=== PATIENT | female | born 1995 | race Caucasian/White ===

== ENCOUNTER 2017-03-29 21:49 | Observation (INO) | payer BC ==
[~2017-03-29] VITALS: Wt 57.2 kg
--- NOTE | 2017-03-29 22:00 | NUR ---
PATIENT DIRECT ADMIT TO ROOM 341 ACCOMPANIED BY SISTER. ORIENTED TO ROOM, CALL LIGHT AND PLAN OF CARE.
[2017-03-29 22:26] VITALS: BP 117/70; PULSE 64; TEMP 98.5
[2017-03-30] VITALS: BP 108/56; PULSE 60; TEMP 97.5
--- NOTE | 2017-03-30 | NUR ---
MULTIPLE ATTEMPTS MADE TO START IV BY SEVERAL RN'S AND SUPERVISOR BLOOMING MILL. RN FROM ER CAME UP AND STARTED IV WITH 20G TO RT AC SPACE AFTER SEVERAL ATTEMPTS. NS AT 125CC/HR STARTED PER PUMP. GAVE TORODOL AND ZOFRAN IV. SISTER VERY SUPPORTIVE AT BEDSIDE. PAIN IMPROVED AFTER A SHORT WHILE.
[2017-03-30] MEDS ORDERED: ZOFRAN 4MG T4 MG/TAB PO (00:14)
[2017-03-30] MEDS ORDERED: PERCOCET 325 MG1 TA2 PO (00:16)
[2017-03-30 04:00] VITALS: BP 104/51; PULSE 56; TEMP 97.4
--- NOTE | 2017-03-30 06:20 | NUR ---
PATIENT HAS BEEN RESTING WELL THROUGH THE NIGHT. DENIES NAUSEA. CONTROLLED RT FLANK PAIN WITH DE ICER KIT ASSEMBLER. MOTHER STAYED THROUGH THE NIGHT WITH PATIENT.
[2017-03-30 08:04] VITALS: BP 106/56; PULSE 58; TEMP 98.5
--- NOTE | 2017-03-30 10:29 | NUR ---
Pt resting in bed during morning rounds. 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 She states she still has mild pain, to right flank, but is manageable. Pt mother is at bedside. Awaiting surgery.
[2017-03-30 11:41] VITALS: BP 109/54; PULSE 70; TEMP 98.4
[2017-03-30 16:01] VITALS: BP 113/70; PULSE 89; TEMP 97.4
--- NOTE | 2017-03-30 16:23 | NUR ---
SW met with patient and family to review discharge plan. Patient lives with her sister in [place], patient is a current [employer] student. Patient plans to return home upon discharge. SW to notify the [employer] Office of Student Life in regards to the patient's hospitalization. No additional needs noted, as patient is independent with ADLs.
--- NOTE | 2017-03-31 03:21 | NUR ---
The pt was bedresting with her sister and mother in with her, They verbalize of recent health events that lead to her hospitalization and subsequent Right Ureteroscopy with stent placemetn. Pt stated that the doctor had warned her that her first voids could be bloody and they were, she has had 2 subsequent voids that are clearly less red and 2 'serial urine cups' are maintained on the BR shelf for Dr. Rodrigez's review in the am. Lisa and Elma JOHNSTON's are aware of them. The pt has taken adequate water and a cranberry juice tonoc. Her INT is patent for meds and she has rated her pain qat a 0-2, in the region over her bladder, she verbalized that she isn't sure if she is voiding fully. This nurse did teaching of bladder scan and will do this in the am. She appears to get adequate sleep, her mother is staying the night in the recliner at her bedside.
[2017-03-31 03:34] VITALS: BP 102/97; PULSE 57; TEMP 98.4
[2017-03-31 06:24] VITALS: BP 99/52; PULSE 63; TEMP 97.9
--- NOTE | 2017-03-31 09:02 | NUR ---
PT RESTING IN BED DURING MORNINGS. PT DENIES N/V AT THIS TIME. STATES PAIN IS MINIMAL, MORE-SO A PRESSURE IN HER ABDOMEN. PT STATES THIS PRESSURE IS MANAGEABLE AND "EXPECTED". PT DOES NOT REQUEST PAIN MEDICATION AT THIS TIME. URINE COLOR IS SHADE OF PINK, BUT IS DECREASING IN PINK TINGE. STATES SHE WAS ABLE TO SLEEP AND TOLERATE PO INTAKE LAST NIGHT AND HOPES TO GO HOME TODAY. MOTHER AT BEDSIDE.
--- NOTE | 2017-04-01 13:25 | NUR ---
SW notifed The Office of Student Life in regards to the patient's hospitalization.
== END 2017-03-31 11:05 | disposition home or self-care (01) ==
LOC: COL.ER 21:49 → EDSTATUS 21:56 → SURG 21:57
PROVIDERS: ADMIT Urology
DX: N20.1 Calculus of ureter (principal)
CPT/HCPCS: C1769; C1894; C2617; G0378; J0690; J1100; J1885; J2270; J2405; J2704; J3010; J7030; J7120

== ENCOUNTER → 2017-03-29 | Outpatient (CLI) | payer BC ==
[~2017-03-29] MED LIST: PERCOCET 325 MG1 TA2 PO; ZOFRAN 4MG T4 MG/TAB PO
== END ==
LOC: COL.RAD 09:08
DX: N13.30 Unspecified hydronephrosis (principal); N20.0 Calculus of kidney; R31.29 Other microscopic hematuria